=== PATIENT | female | born 1975 | race Caucasian/White ===

== ENCOUNTER 2016-11-20 09:38 | Emergency (ER) | payer SELFPAY ==
[~2016-11-20] VITALS: Ht 149.9 cm; Wt 123.6 kg
[2016-11-20] MEDS ORDERED: TESSALON PERLE100 MG PO (10:05)
[2016-11-20 11:17] VITALS: BP 163/108
== END 2016-11-20 11:20 | disposition home or self-care (01) ==
LOC: EME 09:38
DX: B34.9 Viral infection, unspecified (principal); I10 Essential (primary) hypertension; J02.9 Acute pharyngitis, unspecified; R05 Cough; R11.10 Vomiting, unspecified; R13.10 Dysphagia, unspecified
CPT/HCPCS: 99281; 99283; J1100

== ENCOUNTER 2017-05-16 17:45 | Emergency (ER) | payer OTHER ==
[~2017-05-16] VITALS: Ht 149.9 cm; Wt 125.0 kg
[~2017-05-16 17:45] MED LIST: TESSALON PERLE100 MG PO
[2017-05-16] MEDS ORDERED: PEN-VEE K,VEET500 MG PO (19:51)
[2017-05-16] MEDS ORDERED: NORCO 5/3251 TABLET PO (19:51)
[2017-05-16 20:25] VITALS: BP 166/92
== END 2017-05-16 20:26 | disposition home or self-care (01) ==
LOC: EME 17:45
DX: K08.89 Other specified disorders of teeth and supporting structures (principal); J45.909 Unspecified asthma, uncomplicated; Z88.8 Allergy status to other drugs, medicaments and biological substances
CPT/HCPCS: 99281; 99283